=== PATIENT | female | born 1970 | race Caucasian/White ===

== ENCOUNTER 2020-11-24 09:00 | Outpatient (RCR) | payer OTHER, SELFPAY | END 2021-01-10 14:50 | disposition home or self-care (01) | LOC: HO.PTCHIC 09:00 | PROVIDERS: PCP Internal Medicine; Visit Provider Orthopaedic Surgery | DX: Z47.89 Encounter for other orthopedic aftercare (principal) | CPT/HCPCS: 97012; 97014; 97110; 97140; 97162 ==

== ENCOUNTER 2020-11-27 13:44 | Emergency (ER) | payer OTHER, SELFPAY ==
--- NOTE | ~2020-11-27 | CT_ITS ---
EXAMINATION: CT CERVICAL SPINE WITHOUT CONTRAST CLINICAL INFORMATION: Question fluid collection. COMPARISON: Cervical spine radiographs 01/13/2015. TECHNIQUE: Noncontrast CT of the cervical spine. Sagittal and coronal images as well as axial reconstructions through the disc spaces were provided. This CT examination was performed using dose optimization techniques as appropriate, variously including the following: *Automated exposure control *Adjustment of mA and/or kV according to patient size (this includes techniques or standardized protocols for targeted exams where dose is matched to indication/reason for exam; i.e. extremities or head) *Use of iterative reconstruction technique DLP: 516 mGy-cm FINDINGS: Braille Transcriber imaging: Metallic densities in the oral cavity secondary to dental instrumentation. The occipital condyles are properly seated on the C1 lateral masses. The C1 and C2 lateral masses are properly aligned. The dens is intact. The atlantodens interval is preserved. Facets are normally aligned without evidence of jumped facets or perched facets respectively. Spinous processes are intact without abnormal distraction. No distraction of the intervertebral disc spaces. Transverse processes are intact. Transverse foramina are normal. Small endplate marginal osteophytes are noted from C4-C7. Mild degenerative disc disease at these levels is noted. Vertebral body heights are preserved. No fracture is seen. No prevertebral soft tissue swelling. The spinal canal is grossly unremarkable within the limits of CT scanning technique. Lung apices are clear. Visualized intracranial contents are unremarkable. No definable soft tissue fluid collection. CT/CT cervical spine wo con IMPRESSION: 1. No acute traumatic fracture or listhesis of the cervical spine. 2. Mild cervical spondylosis from C4-C7. 3. No definable soft tissue fluid collection is clinically questioned.
[2020-11-27 14:02] VITALS: BP 171/90; PULSE 79; RESP 18; TEMP 36.9; O2SAT 100; BMI 49.9
--- NOTE | 2020-11-27 19:03 | ED.NECK ---
HPI - Neck Pain/Injury General Chief Complaint: Neck Pain/Injury Stated Complaint: NECK SORE TO TOUCH DIFF SWALLOWING Time Seen by Provider: 11/27/20 13:55 Source: patient Mode of arrival: ambulatory Limitations: no limitations History of Present Illness HPI Narrative: Patient with hx of chronic neck pain plan to get MRIs outpatient with history of chronic right shoulder pain status post surgeries noticed throat pain and neck pain worse since last night has painful when she swallows feel like something has moved in her neck no paresthesia or numbness no hand weakness no headache no fever no chills Related Data Allergies Allergy/AdvReac Type Severity Reaction Status Date / Time lisinopril Allergy Unknown Verified 09/22/19 00:00 Review of Systems Review of Systems: Yes all other systems are reviewed and are negative [facility] Past Medical History Medical History (Updated 11/27/20 @ 20:08 by Juvencio Perry MD) Right shoulder pain Social History Social History Advance Directives: Yes Advance Directives Information Provided: Yes Advance Directives on File: No Physical Exam Vital Signs: Vital Signs: Last Vital Signs Temp 98.3 F 11/27/20 20:00 Pulse 67 11/27/20 20:00 Resp 16 11/27/20 20:00 BP 142/82 H 11/27/20 20:00 Pulse Ox 98 11/27/20 20:00 Body Mass Index 49.9 Appearance: Alert. Oriented X3. No acute distress. Eyes: Pupils equal, round and reactive to light. ENT: Pharynx normal. Neck: Normal inspection. Neck supple. Diffuse tenderness in lower neck paraspinal area no midline tenderness CVS: Normal heart rate and rhythm. Pulses normal. Respiratory: No respiratory distress. Breath sounds normal. Abdomen: Soft and nontender. Bowel sounds are present, no mass palpable, no CVA tenderness Skin: Skin warm and dry. Normal skin color. Normal skin turgor. Extremities: No lower extremity edema. Neuro: Oriented X 3. No motor deficit. No sensory deficit. MDM - Neck Pain/Injury MDM Narrative Medical decision making narrative: Patient likely muscular pain very anxious requesting the CT scan which did not show any abnormality will discharge patient home Discharge Plan Discharge Clinical Impression: Strain of neck muscle Qualifiers: Encounter type: initial encounter Qualified Code(s): S16.1XXA - Strain of muscle, fascia and tendon at neck level, initial encounter Patient Disposition: Home, Self-Care Instructions: Cervical Strain (ED) Additional Instructions: Tylenol/Motrin for pain follow with PCP if you have any concerns Interventions: ED Discharge Assessment Last Done: 11/27/20 20:24 Discharge Date/Time: 11/27/20 20:25
[2020-11-27 20:00] VITALS: BP 142/82; PULSE 67; RESP 16; TEMP 36.8; O2SAT 98
== END 2020-11-27 20:25 | disposition home or self-care (01) ==
PROVIDERS: Emergency Provider Internal Medicine; PCP Internal Medicine
DX: S16.1XXA Strain of muscle, fascia and tendon at neck level, initial encounter (principal); M54.2 Cervicalgia; M25.511 Pain in right shoulder; X58.XXXA Exposure to other specified factors, initial encounter; Y93.9 Activity, unspecified; Y92.9 Unspecified place or not applicable; Y99.9 Unspecified external cause status
CPT/HCPCS: 72125; 99284